=== PATIENT | male | born 1965 | race Caucasian/White ===

== ENCOUNTER 2019-04-09 13:30 | Emergency (ER) | payer OTHER ==
[~2019-04-09] VITALS: Ht 172.7 cm; Wt 104.3 kg
[2019-04-09 13:38] VITALS: BP 145/78
== END 2019-04-09 15:06 | disposition left against medical advice (07) ==
LOC: MED 13:30
DX: L29.9 Pruritus, unspecified (principal); Z53.21 Procedure and treatment not carried out due to patient leaving prior to being seen by health care provider